=== PATIENT | male | born 2000 | race Two or more races ===

== ENCOUNTER 2021-07-14 19:02 | Emergency (ER) | payer OTHER ==
[~2021-07-14] VITALS: Ht 170.2 cm; Wt 86.4 kg
[2021-07-14 20:16] VITALS: BP 138/92
== END 2021-07-14 20:47 | disposition home or self-care (01) ==
LOC: EMS 19:02
DX: F41.9 Anxiety disorder, unspecified (principal)
CPT/HCPCS: 93005; 99284; Z7502